=== PATIENT | male | born 1960 | race Caucasian/White ===

== ENCOUNTER 2017-02-22 10:55 | Emergency (ER) | payer MEDICAID, OTHER ==
[~2017-02-22 10:55] MED LIST: AMIODARONE HCL200 M1 PO; COMBIVENT RESPIM4 G1 INH; CORTEF10 M1 PO; CORTEF20 M1 PO; COUMADIN4 M1 PO; COUMADIN5 M2 PO; CULTURELLE1 EAC1 PO; FLOMAX0.4 M1 PO; FLUDROCORTISON0.1 M1 PO; IRON325 M3 PO; LOVASTATIN20 M2 PO; MIDODRINE HCL10 M1 PO; POTASSIUM CHLO20 ME3 PO; PROTONIX40 M2 PO; SYMBICORT 160-1 PUFF INH; SYNTHROID175 MC1 PO; VITAMIN E400 UNI4 PO; ZITHROMAX500 M2 PO
[2017-03-08] MEDS ORDERED: HYDROCORTISONE10 M3 PO ×2 (16:54→16:55)
[2017-03-08] MEDS ORDERED: COUMADIN5 M2 PO (16:57)
[2017-03-08] MEDS ORDERED: COUMADIN4 M1 PO (16:57)
== END 2017-02-22 13:10 ==
LOC: EDMED 10:55
DX: D49.2 Neoplasm of unspecified behavior of bone, soft tissue, and skin (principal); C34.91 Malignant neoplasm of unspecified part of right bronchus or lung; R04.2 Hemoptysis; C79.31 Secondary malignant neoplasm of brain; Z87.891 Personal history of nicotine dependence; I48.2 Chronic atrial fibrillation; Z79.01 Long term (current) use of anticoagulants; J44.9 Chronic obstructive pulmonary disease, unspecified; Z79.51 Long term (current) use of inhaled steroids

== ENCOUNTER 2017-03-09 11:03 | Day surgery (SDC) | payer MEDICAID, OTHER ==
[~2017-03-09 11:03] MED LIST changes: +HYDROCORTISONE10 M3 PO
[2017-03-09 12:01] LABS: BASO % 0.6 % (0-2); EOS % 1.7 % (0-7); EOSINOPHIL ABSOLUTE COUNT 0.1 tho/cmm (0.0-0.7); HCT-HEMATOCRIT 38.7 % (36.0-53.5); HGB-HEMOGLOBIN 12.6 gm/dl (13.5-17.0); IMMATURE GRANULOCYTES ABSOLUTE 0.01 tho/cmm (0-0.03); IMMATURE GRANULOCYTES PERCENT 0.2 % (0-0.3); LYMPH % 12.7 % (20-45); LYMPH ABSOLUTE COUNT 0.6 tho/cmm (0.8-4.5); MCH (MEAN CORPUSCULAR HGB) 31.5 pg (28.0-32.0); MCHC MEAN CORPUSCULAR HGB CONC 32.6 % (32.0-36.0); MCV (MEAN CELL VOLUME) 96.8 fl (82.0-96.0); MONO % 6.4 % (0-12); MONOCYTE ABSOLUTE COUNT 0.3 tho/cmm (0.0-1.2); NEUTROPHIL ABSOLUTE COUNT 3.7 tho/cmm (1.6-8.0); NEUTROPHIL-AUTOMATED 3.7 tho/cmm (1.6-8.0); NEUTROPHILS % 78.4 % (40-80); PLATELET COUNT 172 tho/cmm (150-450); RED CELL DISTRIBUTION WIDTH 13.9 % (12.4-16.4); WHITE BLOOD COUNT 4.7 tho/cmm (4.0-10.0)
[2017-03-09 12:15] LABS: INR 1.5 INR (0.9-1.1); PROTHROMBIN TIME 17.8 SECONDS (9.0-13.6)
== END 2017-03-09 15:55 ==
LOC: SHSB 11:03
PROVIDERS: Internal Medicine Medical Oncology
PROC: 009U3ZX Drainage of Spinal Canal, Percutaneous Approach, Diagnostic (ICD-10-PCS; principal; 2017-03-09)
PROC: B01BZZZ Fluoroscopy of Spinal Cord (ICD-10-PCS; 2017-03-09)
PROC: 07DR3ZX Extraction of Iliac Bone Marrow, Percutaneous Approach, Diagnostic (ICD-10-PCS; 2017-03-09)
DX: C92.00 Acute myeloblastic leukemia, not having achieved remission (principal); D53.9 Nutritional anemia, unspecified; Z79.01 Long term (current) use of anticoagulants; Z79.52 Long term (current) use of systemic steroids; Z79.899 Other long term (current) drug therapy; Z88.1 Allergy status to other antibiotic agents; Z88.8 Allergy status to other drugs, medicaments and biological substances; Z91.041 Radiographic dye allergy status; Z87.891 Personal history of nicotine dependence; Z90.89 Acquired absence of other organs; Z98.890 Other specified postprocedural states
CPT/HCPCS: C1830; G0364; J2250; J3010; J7030

== ENCOUNTER 2017-03-28 12:59 | Observation (INO) | payer MEDICAID ==
[2017-03-28 13:41] LABS: HCT-HEMATOCRIT 40.8 % (36.0-53.5); HGB-HEMOGLOBIN 13.5 gm/dl (13.5-17.0); IMMATURE GRANULOCYTES ABSOLUTE 0.05 tho/cmm (0-0.03); IMMATURE GRANULOCYTES PERCENT 0.4 % (0-0.3); LYMPH % 5.6 % (20-45); LYMPH ABSOLUTE COUNT 0.7 tho/cmm (0.8-4.5); MCH (MEAN CORPUSCULAR HGB) 31.6 pg (28.0-32.0); MCHC MEAN CORPUSCULAR HGB CONC 33.1 % (32.0-36.0); MCV (MEAN CELL VOLUME) 95.6 fl (82.0-96.0); MEAN PLATELET VOLUME 9.7 cmc (9.4-12.4); MONO % 1.9 % (0-12); MONOCYTE ABSOLUTE COUNT 0.2 tho/cmm (0.0-1.2); NEUTROPHIL ABSOLUTE COUNT 10.9 tho/cmm (1.6-8.0); NEUTROPHIL-AUTOMATED 10.9 tho/cmm (1.6-8.0); NEUTROPHILS % 92.1 % (40-80); PLATELET COUNT 109 tho/cmm (150-450); RED BLOOD COUNT 4.27 mil/cmm (4.40-5.70); RED CELL DISTRIBUTION WIDTH 14.6 % (12.4-16.4); WHITE BLOOD COUNT 11.9 tho/cmm (4.0-10.0)
[2017-03-28 13:47] LABS: INR 1.2 INR (0.9-1.1); PROTHROMBIN TIME 13.8 SECONDS (9.0-13.6)
[2017-03-28 14:06] LABS: ANION GAP 13 mmol/L (0-20); BLOOD UREA NITROGEN 32 mg/dl (6-24); CALCIUM 8.4 mg/dl (8.5-10.5); CARBON DIOXIDE-VENOUS 25 mmol/L (22-32); CHLORIDE 107 mmol/l (96-110); CREATININE 1.25 mg/dl (0.60-1.30); GLUCOSE 97 mg/dL (70-110); POTASSIUM 4.4 mmol/L (3.7-5.1); SODIUM 141 mmol/L (135-145); eGFR VALUE FOR BLACK 73 mL/Min
[2017-03-28] MEDS ORDERED: DEXAMETHASONE4 M1 PO (14:21)
[2017-03-28] MEDS ORDERED: OMEPRAZOLE20 M3 PO (14:21)
[2017-03-28 14:49] LABS: URINE BILIRUBIN NEGATIVE (NEG); URINE BLOOD MODERATE (NEG); URINE GLUCOSE (UA) NEGATIVE (NEG); URINE KETONE NEGATIVE (NEG); URINE LEUKOCYTE ESTERASE NEGATIVE (NEG); URINE NITRITE NEGATIVE (NEG); URINE PROTEIN NEGATIVE (NEG)
[2017-03-28 15:01] LABS: URINE APPEARANCE CLEAR; URINE COLOR YELLOW
[2017-03-28 15:21] LABS: URINE EPITHELIAL CELLS 0-3 /[HPF] (0-10); URINE RBC 0-1 /[HPF] (0-5); URINE WBC 0 /[HPF] (0-5)
[2017-03-29 05:48] LABS: IMMATURE GRANULOCYTES ABSOLUTE 0.03 tho/cmm (0-0.03); IMMATURE GRANULOCYTES PERCENT 0.5 % (0-0.3); LYMPH % 6.5 % (20-45); LYMPH ABSOLUTE COUNT 0.4 tho/cmm (0.8-4.5); MCHC MEAN CORPUSCULAR HGB CONC 32.5 % (32.0-36.0); MCV (MEAN CELL VOLUME) 95.5 fl (82.0-96.0); MEAN PLATELET VOLUME 9.7 cmc (9.4-12.4); MONO % 3.4 % (0-12); MONOCYTE ABSOLUTE COUNT 0.2 tho/cmm (0.0-1.2); NEUTROPHIL ABSOLUTE COUNT 5.5 tho/cmm (1.6-8.0); NEUTROPHIL-AUTOMATED 5.5 tho/cmm (1.6-8.0); NEUTROPHILS % 89.6 % (40-80); PLATELET COUNT 96 tho/cmm (150-450); RED BLOOD COUNT 4.19 mil/cmm (4.40-5.70); RED CELL DISTRIBUTION WIDTH 14.7 % (12.4-16.4); WHITE BLOOD COUNT 6.1 tho/cmm (4.0-10.0)
[2017-03-29 05:49] LABS: INR 1.4 INR (0.9-1.1)
[2017-03-29 05:55] LABS: PARTIAL THROMBOPLASTIN TIME 30 SECONDS (22-36)
[2017-03-29 06:01] LABS: ANION GAP 14 mmol/L (0-20); BLOOD UREA NITROGEN 26 mg/dl (6-24); CALCIUM 8.2 mg/dl (8.5-10.5); CARBON DIOXIDE-VENOUS 26 mmol/L (22-32); CHLORIDE 107 mmol/l (96-110); CREATININE 1.26 mg/dl (0.60-1.30); GLUCOSE 109 mg/dL (70-110); POTASSIUM 4.3 mmol/L (3.7-5.1); SODIUM 143 mmol/L (135-145); eGFR VALUE FOR BLACK 72 mL/Min
[2017-03-30 04:52] LABS: HCT-HEMATOCRIT 38.8 % (36.0-53.5); HGB-HEMOGLOBIN 12.6 gm/dl (13.5-17.0); IMMATURE GRANULOCYTES ABSOLUTE 0.04 tho/cmm (0-0.03); IMMATURE GRANULOCYTES PERCENT 0.7 % (0-0.3); LYMPH % 1.5 % (20-45); LYMPH ABSOLUTE COUNT 0.1 tho/cmm (0.8-4.5); MCH (MEAN CORPUSCULAR HGB) 31.1 pg (28.0-32.0); MCHC MEAN CORPUSCULAR HGB CONC 32.5 % (32.0-36.0); MCV (MEAN CELL VOLUME) 95.8 fl (82.0-96.0); MEAN PLATELET VOLUME 9.5 cmc (9.4-12.4); MONO % 5.8 % (0-12); MONOCYTE ABSOLUTE COUNT 0.3 tho/cmm (0.0-1.2); NEUTROPHIL ABSOLUTE COUNT 5.1 tho/cmm (1.6-8.0); NEUTROPHIL-AUTOMATED 5.1 tho/cmm (1.6-8.0); PLATELET COUNT 109 tho/cmm (150-450); RED BLOOD COUNT 4.05 mil/cmm (4.40-5.70); RED CELL DISTRIBUTION WIDTH 14.6 % (12.4-16.4); WHITE BLOOD COUNT 5.5 tho/cmm (4.0-10.0)
[2017-03-30 04:59] LABS: INR 1.4 INR (0.9-1.1); PROTHROMBIN TIME 16.4 SECONDS (9.0-13.6)
[2017-03-30] MEDS ORDERED: LOVENOX150 MG/1 M SC (15:49)
[2017-03-30] MEDS ORDERED: TYLENOL325 M2 PO (15:51)
[2017-03-30] MEDS ORDERED: LEVAQUIN500 M1 PO (15:55)
[2017-03-30] MEDS ORDERED: FLAGYL500 M1 PO (15:56)
== END 2017-03-30 16:44 ==
LOC: EDMED 12:59 → EMR2 16:57 → 5WF 19:20
PROVIDERS: Emergency Medicine; ADMIT Internal Medicine
DX: R06.02 Shortness of breath (principal); C34.90 Malignant neoplasm of unspecified part of unspecified bronchus or lung; C79.31 Secondary malignant neoplasm of brain; K21.9 Gastro-esophageal reflux disease without esophagitis; I95.89 Other hypotension; J44.9 Chronic obstructive pulmonary disease, unspecified; I48.0 Paroxysmal atrial fibrillation; E03.9 Hypothyroidism, unspecified; D64.9 Anemia, unspecified; Z88.1 Allergy status to other antibiotic agents; D69.6 Thrombocytopenia, unspecified; Z91.041 Radiographic dye allergy status; Z86.718 Personal history of other venous thrombosis and embolism; Z87.891 Personal history of nicotine dependence; Z79.01 Long term (current) use of anticoagulants; Z79.899 Other long term (current) drug therapy; Z98.890 Other specified postprocedural states
CPT/HCPCS: A9540; A9558; G0378; G8978-GP-CI; G8979-GP-CI; G8980-GP-CI; J1650; J1956; J7030

== ENCOUNTER 2017-04-19 11:37 | Inpatient (IN) | payer MEDICAID, SELFPAY ==
[~2017-04-19 11:37] MED LIST changes: +DEXAMETHASONE4 M1 PO; +FLAGYL500 M1 PO; +LEVAQUIN500 M1 PO; +LOVENOX150 MG/1 M SC; +OMEPRAZOLE20 M3 PO; +TYLENOL325 M2 PO
[2017-04-19] MEDS ORDERED: COUMADIN6 M1 PO (12:46)
[2017-04-19] MEDS ORDERED: SYNTHROID150 MC1 PO (12:48)
[2017-04-19 14:33] LABS: EOS % 0.2 % (0-7); HGB-HEMOGLOBIN 12.3 gm/dl (13.5-17.0); IMMATURE GRANULOCYTES ABSOLUTE 0.08 tho/cmm (0-0.03); IMMATURE GRANULOCYTES PERCENT 1.5 % (0-0.3); LYMPH % 1.7 % (20-45); LYMPH ABSOLUTE COUNT 0.1 tho/cmm (0.8-4.5); MCH (MEAN CORPUSCULAR HGB) 30.7 pg (28.0-32.0); MCHC MEAN CORPUSCULAR HGB CONC 32.4 % (32.0-36.0); MCV (MEAN CELL VOLUME) 94.8 fl (82.0-96.0); MEAN PLATELET VOLUME 9.9 cmc (9.4-12.4); MONO % 3.9 % (0-12); MONOCYTE ABSOLUTE COUNT 0.2 tho/cmm (0.0-1.2); NEUTROPHILS % 92.7 % (40-80); PLATELET COUNT 62 tho/cmm (150-450); RED BLOOD COUNT 4.01 mil/cmm (4.40-5.70); RED CELL DISTRIBUTION WIDTH 15.7 % (12.4-16.4); WHITE BLOOD COUNT 5.4 tho/cmm (4.0-10.0)
[2017-04-19 14:37] LABS: INR 3.1 INR (0.9-1.1)
[2017-04-19 14:50] LABS: ALB/GLOB RATIO 0.5 (0.8-2.0); ALKALINE PHOSPHATASE 63 U/L (33-138); ALT/SGPT 21 U/L (12-78); ANION GAP 12 mmol/L (0-20); AST/SGOT 17 U/L (10-40); BILIRUBIN,TOTAL 0.4 mg/dl (0.0-1.5); BLOOD UREA NITROGEN 27 mg/dl (6-24); CARBON DIOXIDE-VENOUS 28 mmol/L (22-32); CHLORIDE 108 mmol/l (96-110); CREATININE 1.11 mg/dl (0.60-1.30); GLUCOSE 91 mg/dL (70-110); POTASSIUM 4.1 mmol/L (3.7-5.1); SODIUM 144 mmol/L (135-145); eGFR VALUE FOR BLACK 84 mL/Min
[2017-04-19 21:21] LABS: URINE BILIRUBIN NEGATIVE (NEG); URINE BLOOD LARGE (NEG); URINE GLUCOSE (UA) NEGATIVE (NEG); URINE KETONE NEGATIVE (NEG); URINE LEUKOCYTE ESTERASE NEGATIVE (NEG); URINE NITRITE NEGATIVE (NEG); URINE PROTEIN MODERATE (NEG); URINE SPECIFIC GRAVITY 1.005 (1.003-1.030)
[2017-04-19 21:22] LABS: URINE APPEARANCE HAZY; URINE COLOR YELLOW
[2017-04-19 21:31] LABS: URINE EPITHELIAL CELLS RARE /[HPF] (0-10); URINE MUCUS 1+; URINE WBC 0 /[HPF] (0-5)
[2017-04-20 02:44] LABS: EOS % 0.6 % (0-7); HCT-HEMATOCRIT 36.2 % (36.0-53.5); HGB-HEMOGLOBIN 11.5 gm/dl (13.5-17.0); IMMATURE GRANULOCYTES ABSOLUTE 0.04 tho/cmm (0-0.03); IMMATURE GRANULOCYTES PERCENT 1.1 % (0-0.3); LYMPH % 3.1 % (20-45); LYMPH ABSOLUTE COUNT 0.1 tho/cmm (0.8-4.5); MCH (MEAN CORPUSCULAR HGB) 30.4 pg (28.0-32.0); MCHC MEAN CORPUSCULAR HGB CONC 31.8 % (32.0-36.0); MCV (MEAN CELL VOLUME) 95.8 fl (82.0-96.0); MEAN PLATELET VOLUME 9.9 cmc (9.4-12.4); MONO % 1.7 % (0-12); MONOCYTE ABSOLUTE COUNT 0.1 tho/cmm (0.0-1.2); NEUTROPHIL ABSOLUTE COUNT 3.4 tho/cmm (1.6-8.0); NEUTROPHIL-AUTOMATED 3.4 tho/cmm (1.6-8.0); NEUTROPHILS % 93.5 % (40-80); PLATELET COUNT 59 tho/cmm (150-450); RED BLOOD COUNT 3.78 mil/cmm (4.40-5.70); RED CELL DISTRIBUTION WIDTH 15.8 % (12.4-16.4); WHITE BLOOD COUNT 3.6 tho/cmm (4.0-10.0)
[2017-04-20 02:49] LABS: INR 3.6 INR (0.9-1.1); PROTHROMBIN TIME 42.9 SECONDS (9.0-13.6)
[2017-04-20 03:00] LABS: ALB/GLOB RATIO 0.4 (0.8-2.0); ALBUMIN 1.7 g/dl (3.5-5.0); ALKALINE PHOSPHATASE 56 U/L (33-138); ALT/SGPT 21 U/L (12-78); ANION GAP 11 mmol/L (0-20); AST/SGOT 17 U/L (10-40); BILIRUBIN,TOTAL 0.3 mg/dl (0.0-1.5); BLOOD UREA NITROGEN 26 mg/dl (6-24); CALCIUM 7.5 mg/dl (8.5-10.5); CARBON DIOXIDE-VENOUS 29 mmol/L (22-32); CHLORIDE 107 mmol/l (96-110); CREATININE 1.17 mg/dl (0.60-1.30); GLUCOSE 116 mg/dL (70-110); SODIUM 143 mmol/L (135-145); eGFR VALUE FOR BLACK 79 mL/Min
[2017-04-21 05:57] LABS: BASO % 0.3 % (0-2); EOS % 0.5 % (0-7); HCT-HEMATOCRIT 34.9 % (36.0-53.5); HGB-HEMOGLOBIN 11.2 gm/dl (13.5-17.0); IMMATURE GRANULOCYTES ABSOLUTE 0.06 tho/cmm (0-0.03); IMMATURE GRANULOCYTES PERCENT 1.6 % (0-0.3); LYMPH % 2.4 % (20-45); LYMPH ABSOLUTE COUNT 0.1 tho/cmm (0.8-4.5); MCH (MEAN CORPUSCULAR HGB) 30.8 pg (28.0-32.0); MCHC MEAN CORPUSCULAR HGB CONC 32.1 % (32.0-36.0); MCV (MEAN CELL VOLUME) 95.9 fl (82.0-96.0); MEAN PLATELET VOLUME 10.6 cmc (9.4-12.4); MONO % 2.7 % (0-12); MONOCYTE ABSOLUTE COUNT 0.1 tho/cmm (0.0-1.2); NEUTROPHIL ABSOLUTE COUNT 3.5 tho/cmm (1.6-8.0); NEUTROPHIL-AUTOMATED 3.5 tho/cmm (1.6-8.0); NEUTROPHILS % 92.5 % (40-80); PLATELET COUNT 69 tho/cmm (150-450); RED BLOOD COUNT 3.64 mil/cmm (4.40-5.70); RED CELL DISTRIBUTION WIDTH 15.8 % (12.4-16.4); WHITE BLOOD COUNT 3.7 tho/cmm (4.0-10.0)
[2017-04-21 06:07] LABS: INR 2.1 INR (0.9-1.1); PROTHROMBIN TIME 25.2 SECONDS (9.0-13.6)
[2017-04-21 06:08] LABS: ANION GAP 12 mmol/L (0-20); BLOOD UREA NITROGEN 24 mg/dl (6-24); CARBON DIOXIDE-VENOUS 27 mmol/L (22-32); CHLORIDE 109 mmol/l (96-110); GLUCOSE 94 mg/dL (70-110); POTASSIUM 3.9 mmol/L (3.7-5.1); SODIUM 144 mmol/L (135-145); eGFR VALUE FOR BLACK 85 mL/Min
--- NOTE | 2017-04-21 08:26 | NUR ---
PATIENT REFUSED MEDS TO BE GIVEN @ 0730 WHEN NURSE WENT IN TO GIVE THEM TO PATIENT BECAUSE HE WAS EATING AND STATED THAT HE "NEVER HAS ENOUGH TIME TO EAT BECAUSE PEOPLE ARE ALWAYS IN HERE". MEDS THEN GIVEN LATE DUE TO REFUSING AT SCHEDULED TIME
--- NOTE | 2017-04-21 13:18 | NUR ---
PATIENT CALLED AND WAS COMPLAINING OF FEELING "CHILLED". TOOK VITALS AND THEY WERE WNL. NO TEMP. SBP 130S. NOT NOTED TO BE MORE PALE. APPLIED WARM BLANKETS TO PATIENT AND TURNED UP THE HEAT. STATES HE FELT A LITTLE BETTER.
[2017-04-21 18:23] LABS: ABG CO2 ARTERIAL 27 mmol/L (21-27); ARTERIAL BLD GAS O2 SATURATION 91 % (95-98); ARTERIAL BLOOD GAS PCO2 34 mmHg (32-45); ARTERIAL PO2 57 mmHg (70-100); BICARBONATE 26 mmol/L (21-28); BLOOD GAS BASE EXCESS 3 mM/L (-/+3); PH 7.49 Units (7.35-7.45)
--- NOTE | 2017-04-21 18:55 | NUR ---
WENT IN TO ASSESS PATIENT @ 1700 AND PATIENT WAS REQUIRING MORE OXYGEN THAN BEFORE AND SBPS WERE 90S. TEMP WAS NOW 99.9. PATIENT DENIES FEELING ANY WORSE THAN BEFORE. CALLED RESPIRATORY TO ASSESS PATIENT. CALLED DR GAUTHIER TO GIVE AN UPDATE ON PATIENT AND RECEIVED ORDERS. SEE CHART. PUT PATIENT ON FREQUENT VITALS TO MONITOR.
[2017-04-22 05:08] LABS: ABG CO2 ARTERIAL 30 mmol/L (21-27); ARTERIAL BLD GAS O2 SATURATION 97 % (95-98); ARTERIAL BLOOD GAS PCO2 40 mmHg (32-45); BICARBONATE 29 mmol/L (21-28); BLOOD GAS BASE EXCESS 5 mM/L (-/+3); PH 7.47 Units (7.35-7.45)
[2017-04-22 05:09] LABS: ARTERIAL PO2 87 mmHg (70-100)
[2017-04-22 05:54] LABS: HCT-HEMATOCRIT 34.6 % (36.0-53.5); IMMATURE GRANULOCYTES ABSOLUTE 0.04 tho/cmm (0-0.03); IMMATURE GRANULOCYTES PERCENT 1.2 % (0-0.3); LYMPH % 2.7 % (20-45); LYMPH ABSOLUTE COUNT 0.1 tho/cmm (0.8-4.5); MCH (MEAN CORPUSCULAR HGB) 30.2 pg (28.0-32.0); MCHC MEAN CORPUSCULAR HGB CONC 31.8 % (32.0-36.0); MCV (MEAN CELL VOLUME) 95.1 fl (82.0-96.0); MEAN PLATELET VOLUME 9.8 cmc (9.4-12.4); MONO % 1.8 % (0-12); MONOCYTE ABSOLUTE COUNT 0.1 tho/cmm (0.0-1.2); NEUTROPHIL ABSOLUTE COUNT 3.1 tho/cmm (1.6-8.0); NEUTROPHIL-AUTOMATED 3.1 tho/cmm (1.6-8.0); NEUTROPHILS % 94.3 % (40-80); PLATELET COUNT 53 tho/cmm (150-450); RED BLOOD COUNT 3.64 mil/cmm (4.40-5.70); RED CELL DISTRIBUTION WIDTH 15.9 % (12.4-16.4); WHITE BLOOD COUNT 3.3 tho/cmm (4.0-10.0)
[2017-04-22 06:02] LABS: INR 1.5 INR (0.9-1.1); PROTHROMBIN TIME 18.1 SECONDS (9.0-13.6)
[2017-04-22 17:16] LABS: URINE BILIRUBIN NEGATIVE (NEG); URINE BLOOD MODERATE (NEG); URINE GLUCOSE (UA) NEGATIVE (NEG); URINE KETONE NEGATIVE (NEG); URINE LEUKOCYTE ESTERASE POSITIVE (NEG); URINE NITRITE NEGATIVE (NEG); URINE PROTEIN MODERATE (NEG)
[2017-04-22 17:18] LABS: URINE APPEARANCE CLEAR; URINE COLOR YELLOW
[2017-04-22 17:21] LABS: URINE EPITHELIAL CELLS 0-1 /[HPF] (0-10); URINE RBC 0-1 /[HPF] (0-5); URINE WBC 0 /[HPF] (0-5)
[2017-04-23 04:52] LABS: INR 1.7 INR (0.9-1.1); PROTHROMBIN TIME 20.4 SECONDS (9.0-13.6)
[2017-04-23 04:55] LABS: BASO % 0.3 % (0-2); HCT-HEMATOCRIT 34.3 % (36.0-53.5); IMMATURE GRANULOCYTES ABSOLUTE 0.03 tho/cmm (0-0.03); IMMATURE GRANULOCYTES PERCENT 0.9 % (0-0.3); LYMPH % 2.9 % (20-45); LYMPH ABSOLUTE COUNT 0.1 tho/cmm (0.8-4.5); MCH (MEAN CORPUSCULAR HGB) 30.2 pg (28.0-32.0); MCHC MEAN CORPUSCULAR HGB CONC 32.1 % (32.0-36.0); MCV (MEAN CELL VOLUME) 94.2 fl (82.0-96.0); MEAN PLATELET VOLUME 10.5 cmc (9.4-12.4); MONOCYTE ABSOLUTE COUNT 0.1 tho/cmm (0.0-1.2); NEUTROPHIL ABSOLUTE COUNT 3.3 tho/cmm (1.6-8.0); NEUTROPHIL-AUTOMATED 3.3 tho/cmm (1.6-8.0); NEUTROPHILS % 93.9 % (40-80); PLATELET COUNT 54 tho/cmm (150-450); RED BLOOD COUNT 3.64 mil/cmm (4.40-5.70); RED CELL DISTRIBUTION WIDTH 15.4 % (12.4-16.4); WHITE BLOOD COUNT 3.5 tho/cmm (4.0-10.0)
[2017-04-23 05:03] LABS: ANION GAP 11 mmol/L (0-20); BLOOD UREA NITROGEN 25 mg/dl (6-24); CARBON DIOXIDE-VENOUS 28 mmol/L (22-32); CHLORIDE 107 mmol/l (96-110); CREATININE 1.02 mg/dl (0.60-1.30); GLUCOSE 138 mg/dL (70-110); POTASSIUM 3.8 mmol/L (3.7-5.1); SODIUM 142 mmol/L (135-145); eGFR VALUE FOR BLACK >90 mL/Min
[2017-04-23 10:46] LABS: PROCALCITONIN 0.09 ng/ml (0.05-0.09)
[2017-04-24 04:26] LABS: HCT-HEMATOCRIT 33.8 % (36.0-53.5); IMMATURE GRANULOCYTES ABSOLUTE 0.03 tho/cmm (0-0.03); IMMATURE GRANULOCYTES PERCENT 0.6 % (0-0.3); LYMPH ABSOLUTE COUNT 0.2 tho/cmm (0.8-4.5); MCH (MEAN CORPUSCULAR HGB) 30.6 pg (28.0-32.0); MCHC MEAN CORPUSCULAR HGB CONC 32.5 % (32.0-36.0); MCV (MEAN CELL VOLUME) 93.9 fl (82.0-96.0); MEAN PLATELET VOLUME 9.9 cmc (9.4-12.4); MONOCYTE ABSOLUTE COUNT 0.1 tho/cmm (0.0-1.2); NEUTROPHIL ABSOLUTE COUNT 4.8 tho/cmm (1.6-8.0); NEUTROPHIL-AUTOMATED 4.8 tho/cmm (1.6-8.0); NEUTROPHILS % 95.4 % (40-80); RED CELL DISTRIBUTION WIDTH 15.6 % (12.4-16.4)
[2017-04-24 04:29] LABS: PLATELET COUNT 43 tho/cmm (150-450)
[2017-04-24 04:49] LABS: ALB/GLOB RATIO 0.4 (0.8-2.0); ALBUMIN 1.6 g/dl (3.5-5.0); ALKALINE PHOSPHATASE 69 U/L (33-138); ALT/SGPT 20 U/L (12-78); ANION GAP 11 mmol/L (0-20); AST/SGOT 24 U/L (10-40); BILIRUBIN,TOTAL 0.2 mg/dl (0.0-1.5); BLOOD UREA NITROGEN 32 mg/dl (6-24); CALCIUM 7.8 mg/dl (8.5-10.5); CARBON DIOXIDE-VENOUS 26 mmol/L (22-32); CHLORIDE 109 mmol/l (96-110); CREATININE 0.98 mg/dl (0.60-1.30); GLUCOSE 150 mg/dL (70-110); SODIUM 142 mmol/L (135-145); eGFR VALUE FOR BLACK >90 mL/Min
[2017-04-24 04:52] LABS: INR 2.7 INR (0.9-1.1)
[2017-04-24 20:41] LABS: ABG CO2 ARTERIAL 25 mmol/L (21-27); ARTERIAL BLD GAS O2 SATURATION 99 % (95-98); ARTERIAL BLOOD GAS PCO2 33 mmHg (32-45); ARTERIAL PO2 161 mmHg (70-100); BICARBONATE 24 mmol/L (21-28); BLOOD GAS BASE EXCESS 2 mM/L (-/+3); PH 7.48 Units (7.35-7.45)
[2017-04-24 22:02] LABS: ABG CO2 ARTERIAL 25 mmol/L (21-27); ARTERIAL BLD GAS O2 SATURATION 98 % (95-98); ARTERIAL BLOOD GAS PCO2 32 mmHg (32-45); BICARBONATE 24 mmol/L (21-28); BLOOD GAS BASE EXCESS 1 mM/L (-/+3); PH 7.48 Units (7.35-7.45)
[2017-04-24 22:03] LABS: ARTERIAL PO2 121 mmHg (70-100)
[2017-04-25 06:18] LABS: HCT-HEMATOCRIT 32.4 % (36.0-53.5); HGB-HEMOGLOBIN 10.7 gm/dl (13.5-17.0); IMMATURE GRANULOCYTES ABSOLUTE 0.05 tho/cmm (0-0.03); IMMATURE GRANULOCYTES PERCENT 1.1 % (0-0.3); LYMPH % 1.3 % (20-45); LYMPH ABSOLUTE COUNT 0.1 tho/cmm (0.8-4.5); MCH (MEAN CORPUSCULAR HGB) 30.4 pg (28.0-32.0); MONOCYTE ABSOLUTE COUNT 0.1 tho/cmm (0.0-1.2); NEUTROPHIL ABSOLUTE COUNT 4.4 tho/cmm (1.6-8.0); NEUTROPHIL-AUTOMATED 4.4 tho/cmm (1.6-8.0); NEUTROPHILS % 94.6 % (40-80); RED BLOOD COUNT 3.52 mil/cmm (4.40-5.70); RED CELL DISTRIBUTION WIDTH 16.1 % (12.4-16.4); WHITE BLOOD COUNT 4.7 tho/cmm (4.0-10.0)
[2017-04-25 06:27] LABS: PLATELET COUNT 30 tho/cmm (150-450)
[2017-04-25 06:29] LABS: ANION GAP 12 mmol/L (0-20); BLOOD UREA NITROGEN 34 mg/dl (6-24); CALCIUM 7.6 mg/dl (8.5-10.5); CARBON DIOXIDE-VENOUS 27 mmol/L (22-32); CHLORIDE 105 mmol/l (96-110); GLUCOSE 127 mg/dL (70-110); SODIUM 140 mmol/L (135-145); eGFR VALUE FOR BLACK 71 mL/Min
[2017-04-25 06:32] LABS: CREATININE 1.27 mg/dl (0.60-1.30)
[2017-04-25 06:44] LABS: PROTHROMBIN TIME 69.2 SECONDS (9.0-13.6)
[2017-04-25 06:47] LABS: INR 5.7 INR (0.9-1.1)
[2017-04-26 04:44] LABS: HCT-HEMATOCRIT 31.8 % (36.0-53.5); HGB-HEMOGLOBIN 10.7 gm/dl (13.5-17.0); IMMATURE GRANULOCYTES ABSOLUTE 0.05 tho/cmm (0-0.03); IMMATURE GRANULOCYTES PERCENT 1.1 % (0-0.3); LYMPH % 2.2 % (20-45); LYMPH ABSOLUTE COUNT 0.1 tho/cmm (0.8-4.5); MCH (MEAN CORPUSCULAR HGB) 30.6 pg (28.0-32.0); MCHC MEAN CORPUSCULAR HGB CONC 33.6 % (32.0-36.0); MCV (MEAN CELL VOLUME) 90.9 fl (82.0-96.0); MONO % 0.7 % (0-12); NEUTROPHIL ABSOLUTE COUNT 4.3 tho/cmm (1.6-8.0); NEUTROPHIL-AUTOMATED 4.3 tho/cmm (1.6-8.0); RED CELL DISTRIBUTION WIDTH 15.8 % (12.4-16.4); WHITE BLOOD COUNT 4.5 tho/cmm (4.0-10.0)
[2017-04-26 04:48] LABS: PLATELET COUNT 20 tho/cmm (150-450)
[2017-04-26 05:02] LABS: ALB/GLOB RATIO 0.4 (0.8-2.0); ALBUMIN 1.5 g/dl (3.5-5.0); ALKALINE PHOSPHATASE 110 U/L (33-138); ALT/SGPT 22 U/L (12-78); ANION GAP 13 mmol/L (0-20); AST/SGOT 42 U/L (10-40); BILIRUBIN,TOTAL 0.3 mg/dl (0.0-1.5); BLOOD UREA NITROGEN 27 mg/dl (6-24); CALCIUM 7.4 mg/dl (8.5-10.5); CARBON DIOXIDE-VENOUS 26 mmol/L (22-32); CHLORIDE 102 mmol/l (96-110); CREATININE 1.03 mg/dl (0.60-1.30); GLUCOSE 136 mg/dL (70-110); POTASSIUM 4.3 mmol/L (3.7-5.1); PROTHROMBIN TIME 82.7 SECONDS (9.0-13.6); SODIUM 137 mmol/L (135-145); eGFR VALUE FOR BLACK >90 mL/Min
[2017-04-26 05:04] LABS: INR 6.7 INR (0.9-1.1)
--- NOTE | 2017-04-26 10:22 | NUR ---
PALLATIVE AND PULMONARY TO ROOM TO ROUND ON PT. PT AND MD'S CAME TO THE CONCLUSION TO BE COMFORT CARES. ORDERS IN PLACE.
== END 2017-04-26 20:18 | disposition expired | DRG 166 ==
LOC: PCUB 11:37
PROVIDERS: Family Medicine; Internal Medicine; Internal Medicine Critical Care Medicine; Internal Medicine Pulmonary Disease; Nurse Practitioner; ADMIT Family Medicine
PROC: 5A09457 Assistance with Respiratory Ventilation, 24-96 Consecutive Hours, Continuous Positive Airway Pressure (ICD-10-PCS; 2017-04-21)
PROC: B246ZZZ Ultrasonography of Right and Left Heart (ICD-10-PCS; 2017-04-23)
PROC: 02HV33Z Insertion of Infusion Device into Superior Vena Cava, Percutaneous Approach (ICD-10-PCS; 2017-04-23)
PROC: B548ZZA Ultrasonography of Superior Vena Cava, Guidance (ICD-10-PCS; 2017-04-23)
PROC: 0B9G8ZX Drainage of Left Upper Lung Lobe, Via Natural or Artificial Opening Endoscopic, Diagnostic (ICD-10-PCS; principal; 2017-04-24)
PROC: 0B9C8ZX Drainage of Right Upper Lung Lobe, Via Natural or Artificial Opening Endoscopic, Diagnostic (ICD-10-PCS; 2017-04-24)
DX: C34.91 Malignant neoplasm of unspecified part of right bronchus or lung (principal); J96.21 Acute and chronic respiratory failure with hypoxia; I95.89 Other hypotension; D61.818 Other pancytopenia; J18.8 Other pneumonia, unspecified organism; C79.31 Secondary malignant neoplasm of brain; R04.2 Hemoptysis; D69.6 Thrombocytopenia, unspecified; Z51.5 Encounter for palliative care; Z66 Do not resuscitate; I48.0 Paroxysmal atrial fibrillation; K21.9 Gastro-esophageal reflux disease without esophagitis; J44.9 Chronic obstructive pulmonary disease, unspecified; E03.9 Hypothyroidism, unspecified; D64.9 Anemia, unspecified; R00.0 Tachycardia, unspecified; G47.33 Obstructive sleep apnea (adult) (pediatric); R53.1 Weakness; R53.83 Other fatigue; R53.81 Other malaise; Z87.891 Personal history of nicotine dependence; Z86.718 Personal history of other venous thrombosis and embolism; Z79.51 Long term (current) use of inhaled steroids; Z79.01 Long term (current) use of anticoagulants; Z79.899 Other long term (current) drug therapy
CPT/HCPCS: C1751; C8929; J0456; J1200; J1630; J1940; J1956; J2060; J2185; J2250; J2270; J2405; J2930; J3010; J3370; J7030; J7040; J7050; Q9967